=== PATIENT | female | born 1945 | race Caucasian/White ===

== ENCOUNTER 2017-05-29 14:26 | Emergency (ER) | payer MEDICARE, OTHER ==
[~2017-05-29] VITALS: Ht 162.6 cm; Wt 52.0 kg
[~2017-05-29 14:26] MED LIST: AMOX875T20 PO; Z.0.NO CURRENT MEDS
[2017-05-29 14:33] VITALS: BP 163/70; PULSE 61; RESP 16; TEMP 97.6; O2SAT 99
--- NOTE | 2017-05-29 15:16 | RADRPT ---
EXAM DATE/TIME: 05/29/2017 14:58 [place] COMPARISON: No previous studies available for comparison. INDICATIONS : Low back pain post fall MEDICAL HISTORY : None. SURGICAL HISTORY : None. ENCOUNTER: Initial ACUITY: 1 day PAIN SCORE: 6/10 LOCATION: Coccyx FINDINGS: Two view examination of the coccyx demonstrates no evidence of fracture or dislocation. CONCLUSION: No acute fractures or dislocation. Jerry Franco MD on May 29, 2017 at 15:14 Board Certified Radiologist. This report was verified electronically.
[2017-05-29] MEDS ORDERED: DICL75TA PO (15:22)
[2017-05-29] MEDS ORDERED: HYDR-3516 PO (15:22)
--- NOTE | 2017-05-29 15:24 | PD ---
HPI Chief Complaint: Injury Time Seen by Provider: 15:21 Travel History International Travel<30 days: No Contact w/Intl Traveler<30days: No Traveled to known affect area: No History of Present Illness HPI 72-year-old female presents to the ED for evaluation of injury to her tailbone. Per patient she was moving a mattress for bed when she accidentally lost her balance and landed on her buttocks. Per patient this happened around 10:00 this morning. Per patient she is concerned because she still has a little pain. Per patient the pain is 8 out of 10. Gets worse with sitting. Denies any prior injuries. Very sore with touch. Has been doing warm compresses with some relief. Patient main concern that there is something else going on. Denies any urinary or bowel movement issues. No numbness or tingling. Able to ambulate. No allergies to medication. Pain does not radiate. PFSH Past Medical History Diminished Hearing: No Menopausal: Yes Social History Alcohol Use: No Tobacco Use: No Substance Use: No Allergies-Medications (Allergen,Severity, Reaction): Coded Allergies: No Known Allergies (Unverified Adverse Reaction, Unknown, 05/29/17) Reported Meds & Prescriptions Reported Meds & Active Scripts Active Hydrocodone-Acetaminophen 5-325 mg Tab 1 Tab PO Q6H PRN Diclofenac Sodium DR (Diclofenac Sodium) 75 Mg Tabdr 75 Mg PO BID PRN Amoxicillin/Clavulanate P (Amoxicillin/Clavulanate Potassium) 875 Mg Tab 875 Mg PO BID 10 Days Reported No Current Meds (Miscellaneous Medication) Misc Review of Systems Except as stated in HPI: all other systems reviewed are Neg Physical Exam Narrative GENERAL: SKIN: Warm and dry. HEAD: Atraumatic. Normocephalic. EYES: Pupils equal and round. No scleral icterus. No injection or drainage. ENT: No nasal bleeding or discharge. Mucous membranes pink and moist. NECK: Trachea midline. No JVD. CARDIOVASCULAR: Regular rate and rhythm. RESPIRATORY: No accessory muscle use. Clear to auscultation. Breath sounds equal bilaterally. GASTROINTESTINAL: Abdomen soft, non-tender, nondistended. Hepatic and splenic margins not palpable. MUSCULOSKELETAL: Extremities without clubbing, cyanosis, or edema. No obvious deformities. Seen within the nurse present. Patient has reversible pain of the tailbone. No pain on the hips or lumbar or thoracic or cervical spine tenderness to palpation. Full range of motion of the upper and lower extremities bilaterally. 2+ pulses bilaterally. Sensation intact bilaterally. NEUROLOGICAL: Awake and alert. No obvious cranial nerve deficits. Motor grossly within normal limits. Five out of 5 muscle strength in the arms and legs. Normal speech. PSYCHIATRIC: Appropriate mood and affect; insight and judgment normal. Data Data Last Documented VS Vital Signs Date Time Temp Pulse Resp B/P (MAP) Pulse Ox O2 Delivery O2 Flow Rate FiO2 05/29/17 14:33 97.6 61 16 163/70 (101) 99 Orders Orders Coccyx (05/29/17 ) Ed Discharge Order (05/29/17 15:22) [facility] Medical Decision Making Medical Screen Exam Complete: Yes Emergency Medical Condition: Yes Medical Record Reviewed: Yes Interpretation(s) Last Impressions Coccyx X-Ray 05/29/17 0000 Signed Impressions: Service Date/Time: Monday, May 29, 2017 14:58 - CONCLUSION: No acute fractures or dislocation. Jerry Franco MD Differential Diagnosis Fracture versus sprain versus strain versus bruise versus contusion Narrative Course 72-year-old female that presents to the ED for evaluation of injury to her tailbone. Patient was properly examined and was found to have signs and symptoms concerning for bony injury. X-ray was done. X-ray was negative for acute bony injury. Patient was reassured. At this time recommendation is for trial of Lortab and diclofenac sodium for pain only to use if needed. Warm compresses were endorsed. Donut-shaped cushion as needed. See ED worsening symptoms. Follow-up with PCP. Diagnosis Primary Impression: Contusion of coccyx Qualified Codes: S30.0XXA - Contusion of lower back and pelvis, initial encounter Patient Instructions: General Instructions Additional Instructions: Take medications as prescribed. Follow-up with PCP. See ED for any worsening symptoms. Do not drink or drive while taking pain medication. Apply ice or heat as needed for pain Med/Other Pt SpecificInfo: Prescription(s) given Scripts Hydrocodone-Acetaminophen (Hydrocodone-Acetaminophen) 5-325 mg Tab 1 TAB PO Q6H Y for PAIN, #12 TAB 0 Refills Prov: Evelyn Borden MD 05/29/17 Diclofenac Sodium (Diclofenac Sodium DR) 75 Mg Tabdr 75 MG PO BID Y for PAIN SCALE 1 TO 10, #20 TAB 0 Refills Prov: Evelyn Borden MD 05/29/17 Disposition: 01 DISCHARGE HOME Condition: Stable Joni Quiñonez May 29, 2017 15:24
== END 2017-05-29 15:55 | disposition home or self-care (01) ==
LOC: PHEFT 14:26
DX: S30.0XXA Contusion of lower back and pelvis, initial encounter (principal); W18.30XA Fall on same level, unspecified, initial encounter
CPT/HCPCS: 99283